=== PATIENT | male | born 1985 | race Hispanic/Latino ===

== ENCOUNTER 2016-10-31 16:36 | Emergency (ER) | payer OTHER ==
[~2016-10-31] VITALS: Ht 172.7 cm; Wt 83.9 kg
[~2016-10-31 16:36] MED LIST: MOTRIN 600 MG600 MG PO; PENICILLIN V P500 MG PO; THERAFLU1 PDS PO
[2016-10-31 16:43] VITALS: BP 154/85
[2016-10-31] MEDS ORDERED: MEDROL4 M2 PO (17:02)
[2016-10-31] MEDS ORDERED: AUGMENTIN 500-1 EACH PO (17:02)
--- NOTE | 2016-10-31 17:03 | ED THROAT/DENTAL COMPLAINT ---
History of Present Illness General Chief Complaint: Sore Throat, Dental Pain Stated Complaint: SORE THROAT X1 DAY Source: patient Exam Limitations: no limitations Vital Signs & Intake/Output Vital Signs & Intake/Output Vital Signs Date Time Temp Pulse Resp B/P Pulse O2 O2 Flow FiO2 Ox Delivery Rate 10/31 1643 97.7 58 16 154/85 99 Room Air Allergies Coded Allergies: NO KNOWN ALLERGIES (11/22/12) Reconcile Medications Augmentin (Augmentin 500-125 Tablet) 500 MG-125 MG TABLET 1 TAB PO BID PHARYNGITIS Methylprednisolone. (Medrol) 4 MG TAB.DS.PK 1 DP PO AD INFLAMMATION 6 on day 1 then reduce by one tablet daily until gone Triage Note: COMPLAINS OF SORE THROAT SINCE YESTERDAY Triage Nurses Notes Reviewed? yes Onset: Gradual Duration: constant Timing: recent history Severity: moderate Severity Numbers: 5 HPI: Patient is a 31-year-old male with an unremarkable past medical history of present emergent with a 24-hour history of gradual onset of throat swelling and pain. Patient states that his family members were sick over the weekend however with different symptoms. Patient is able tolerate by mouth. Denies any fevers chills ear pain cough nausea vomiting. Past History Travel History Traveled to [place] past 21 day No Medical History Any Pertinent Medical History? none Neurological: NONE EENT: NONE Cardiovascular: NONE Respiratory: NONE Gastrointestinal: NONE Hepatic: NONE Renal: NONE Musculoskeletal: NONE Psychiatric: NONE Endocrine: NONE Blood Disorders: NONE [employer]GER/Reproductive: NONE Surgical History Surgical History: non-contributory Psychosocial History What is your primary language Indonesian Tobacco Use: Never used ETOH Use: denies use Illicit Drug Use: denies illicit drug use Family History Hx Contributory? No Review of Systems Review of Systems Constitutional: Reports: no symptoms. EENTM: Reports: see HPI, throat pain, throat swelling. Respiratory: Reports: no symptoms. Cardiovascular: Reports: no symptoms. GI: Reports: no symptoms. Genitourinary: Reports: no symptoms. Musculoskeletal: Reports: no symptoms. Skin: Reports: no symptoms. Neurological/Psychological: Reports: no symptoms. Hematologic/Endocrine: Reports: no symptoms. Immunologic/Allergic: Reports: no symptoms. All Other Systems: Reviewed and Negative Physical Exam Physical Exam General Appearance: no apparent distress, alert, comfortable Mouth/Throat: normal mouth inspection, RIGHT TONSILLAR EXUDATE NOTED Comments: Well-developed well-nourished person in no acute distress HEENT: Normal EENT exam, extraocular motion intact, no nystagmus. Pupils equally round and reactive to light and accommodation. Nose is atraumatic. External auditory canal and Tympanic membranes clear. Neck: Supple, bilateral anterior cervical adenopathy normal range of motion without pain or tenderness Back: Nontender, no CVA tenderness. Cardiovascular: Regular rate and rhythms no murmurs rubs or gallops, normal JVP Respiratory: Chest nontender. No respiratory distress.breath sounds clear to auscultation bilaterally Extremity: No edema, no calf tenderness to palpation, normal and equal pulses. Neuro: Alert oriented motor sensory normal, Skin: No appreciable rash on exposed skin, skin is warm and dry. Psych: Mood and affect is normal, memory and judgment is normal. Core Measures ACS in differential dx? No Severe Sepsis Present: No Septic Shock Present: No Progress Differential Diagnosis: carious tooth, epiglottitis, Ludwigs angina, meningitis, odontogenic abscess, esperanza-tonsillar abscess, pharyngeal for. body, stomatitis/ gingivitis, strep pharyngitis Plan of Care: Orders Procedure Date/time Status THROAT CULTURE W/QUICK STREP 10/31 1641 Active Patient has Centor criteria of 2 in which patient will be treated FOR STREPT PHARYNGITIS WITH Augmentin and steroids and patient was strongly advised to call the emergency room in 2 days for culture results and if negative he will discontinue the antibiotic and continue with the steroids. Upon discharge patient looks well no apparent distress and will comply with discharge instructions and had no questions. (DEVI DUBOSE,EFREN) Departure Departure Disposition: HOME OR SELF CARE Condition: Stable Clinical Impression Primary Impression: Pharyngitis Referrals: EVA PHILLIPS MD (PCP/Family) Additional Instructions: As discussed begin the prescription of Medrol Dosepak for inflammation and Augmentin as directed for the full course. Begin drinking plenty of water for hydration. Begin [id number] ibuprofen for pain and inflammation. If no better in 3 days follow-up with primary care doctor. Prescriptions are waiting at the [facility] pharmacy. If you develop worsening symptoms or new concerning symptom return to emergency room immediately Departure Forms: Customer Survey General Discharge Information Prescriptions: Current Visit Scripts Augmentin (Augmentin 500-125 Tablet) 1 TAB PO BID #20 TAB Methylprednisolone. (Medrol) 1 DP PO AD #1 DP 6 on day 1 then reduce by one tablet daily until gone
== END 2016-10-31 17:25 ==
LOC: ERH 16:36
DX: J02.9 Acute pharyngitis, unspecified (principal)